=== PATIENT | female | born 1970 | race American Indian/Alaskan Native ===

== ENCOUNTER 2017-09-21 21:00 | Emergency (ER) | payer MEDICAID ==
[2017-09-21 21:24] VITALS: RESP 18; TEMP 98.2; O2SAT 100
[2017-09-21] MEDS ORDERED: TDAP Vaccine 0.5 mL Syr IM ONE (21:34)
[2017-09-21] MEDS ORDERED: Oxycodone/Acetaminophen 5/325 mg Tab PO STA (21:35)
--- NOTE | 2017-09-21 21:41 | ED PDOC ---
Arrival/HPI - General Chief Complaint: Lower Extremity Problem/Injury Time Seen by Provider: 09/21/17 21:22 Historian: Patient, Other (daugther is at bedside) - History of Present Illness Narrative History of Present Illness (Text): 09/21/17 21:37 pt p/w + left leg pain, left face pain, s/p trip and fall after her left leg gave out on her today x 2 episodes; pt states she was able to get up on her own by straddling between 2 cars but she is now limping with left leg pain; pt states as she fall, + struck her left upper face, + mild swelling; pt states her left leg pain is severe at 8/10; pt states no fever/chills/sweats, no byers, no vision changes, no neck pain, no cp/sob/palpitations, no abd pain, no n/v, no numbness/tingling, no urinary/bowel changes, no travel/sick contact. pt states no urinary/bowel incontinence, no rectal/vaginal numbness/tingling pt is here for further eval pt's without other complaints. PCP: TEJA hx of back surgery hx of left drop foot, does not ambulate with a brace/walking device Time/Duration: 24 hours Symptom Onset: Sudden Symptom Course: Unchanged Severity Level: 7 Activities at Onset: Rest Context: Walking, Other (at a parking lot) Past Medical History - Provider Review Nursing Documentation Reviewed: Yes - Travel History Have you recently traveled outside [place] w/in the past 3 mons?: No - Past History Past History: No Previous - Infectious Disease Hx of Infectious Diseases: None - Reproductive Currently : Unknown - Cardiac Hx Cardiac Disorders: No - Pulmonary Hx Respiratory Disorders: No - Neurological Hx Neurological Disorder: No - HEENT Hx HEENT Disorder: No - Renal Hx Renal Disorder: No - Endocrine/Metabolic Hx Endocrine Disorders: Yes Hx Hyperthyroidism: Yes Hx Systemic Lupus Erythematosus: Yes - Hematological/Oncological Hx Blood Disorders: No - Integumentary Hx Dermatological Disorder: No - Musculoskeletal/Rheumatological Hx Musculoskeletal Disorders: Yes Hx Back Pain: Yes Hx Herniated Disk: Yes 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 L4-L5 fusion - Gastrointestinal Hx Gastrointestinal Disorders: No - Genitourinary/Gynecological Hx Genitourinary Disorders: No - Psychiatric Hx Psychophysiologic Disorder: No Hx Substance Use: No - Anesthesia Hx Anesthesia: Yes Hx Anesthesia Reactions: No Family/Social History - Physician Review Nursing Documentation Reviewed: Yes Family/Social History: No Known Family HX Smoking Status: Never Smoked Hx Alcohol Use: No Hx Substance Use: No Hx Substance Use Treatment: No Allergies/Home Meds Allergies/Adverse Reactions: Allergies No Known Allergies Allergy (Unverified 08/15/13 15:27) Home Medications: Home Meds Medication Instructions Recorded Confirmed Hydroxychloroquine Sulfate 200 mg PO DAILY 09/21/17 09/21/17 Ibuprofen [Motrin Tab] 800 mg PO BID 09/21/17 09/21/17 Propylthiouracil 100 mg PO BID 09/21/17 09/21/17 Review of Systems - Review of Systems Constitutional: Normal Eyes: Normal ENT: Normal Respiratory: Normal Cardiovascular: Normal. absent: Chest Pain, Syncope Gastrointestinal: Normal. absent: Abdominal Pain, Nausea, Vomiting Genitourinary Female: Normal Musculoskeletal: Other (left leg pain) Skin: Normal. absent: Rash Neurological: Other (left face pain). absent: Headache, Dizziness, Focal Weakness, Speech Changes Endocrine: Normal Hemo/Lymphatic: Normal Psychiatric: Normal Physical Exam Vital Signs Reviewed: Yes Vital Signs Temp Pulse Resp BP Pulse Ox 09/21/17 21:19 98.2 F 100 H 18 136/74 100 Temperature: Afebrile Blood Pressure: Normal Pulse: Regular Respiratory Rate: Normal Appearance: Positive for: Well-Appearing, Non-Toxic, Uncomfortable, Other ( sitting on exam bed, alert/awake, GCS = 15, oriented x 3, NAD, + uncomfortable, + cooperative) Pain Distress: None Mental Status: Positive for: Alert and Oriented X 3 - Systems Exam Head: Present: Normocephalic, Other (+ left mid facial mild swelling is noted, + mild tenderness noted, NO fluctuance/no induration noted, faint mild skin erythema is noted; NO lacerations/lesions/rashes noted) Pupils: Present: PERRL, Other (no nystagmus, no photophobia, sclera anicteric, visual field intact b/l) Extroacular Muscles: Present: EOMI Conjunctiva: Present: Normal Ears: Present: Normal Mouth: Present: Moist Mucous Membranes, Normal Teeth, Other (uvula/tongue are midline, no exudate/lesions, no drooling/stridor, no dysphonia) Pharnyx: Present: Normal Nose (External): Present: Atraumatic Nose (Internal): Present: Normal Inspection Neck: Present: Normal Range of Motion, Trachea Midline, Other (intact ROM, no step off, no midline tenderness, no nuchal rigidity). No: Meningeal Signs, MIDLINE TENDERNESS, Paraspinal Tenderness Respiratory/Chest: Present: Clear to Auscultation, Good Air Exchange, Other ( CTA b/l, no w/r/r). No: Respiratory Distress, Accessory Muscle Use Cardiovascular: Present: Regular Rate and Rhythm, Normal S1, S2. No: Murmurs Abdomen: Present: Normal Bowel Sounds, Other (well nourished female, no focal tenderness, no fontenot's sign, no mcburney's point tenderness, no masses/rebound/ guarding/rigidity) Back: Present: Normal Inspection. No: CVA Tenderness, Midline Tenderness Upper Extremity: Present: Normal Inspection, Normal ROM, NORMAL PULSES, Neurovascularly Intact, Other (strength 5/5 grossly intact b/l, intact ROM, no gross deformities noted). No: Deformity Lower Extremity: Present: NORMAL PULSES, Neurovascularly Intact, Other (intact ROM, + left anterior knee skin abrasions noted, NO acute bleeding/discharge/ lacerations noted; pt is able to bear weight but limps/favors left leg when she walks; strength 5-/5 left lower ext, neurovasc intact b/l). No: CALF TENDERNESS , Kain's Sign Neurological: Present: GCS=15, CN II-XII Intact, Speech Normal, Other (CNII-XII WNL, no facial asymmetries, no slurr speech, NIH stroke scale ~ 0) Skin: Present: Warm, Normal Color, Other (cap refill < 1sec, no ulcerations, no petechiae, as described above left anterior knee skin abrasion) Psychiatric: Present: Alert, Oriented x 3 Medical Decision Making ED Course and Treatment: 09/21/17 21:35 Impression: left face/left leg pain s/p fall i have consider all the differential diagnosis regarding pt's chief medical complaints/clinical findings, including but are not limited to: unlikely fracture, + contusion/strain A/P: left face/leg pain - xray - RICE txt - supportive care - observe/reevaluation pt is currently awaiting xray 09/21/17 23:25 pt is at bedside pt felt slight improvement pt is made aware of her medical results pt is encouraged RICE txt pt is encouraged cane for ambulation pt will f/u as directed pt will be discharged home Re-evaluation Time: 23:18 Reassessment Condition: Improving,but remains with symptoms - RAD Interpretation Narrative RAD Interpretations (Text): 09/21/17 23:07 PRELIM results: L/S xray - no acute fx/subluxation osteopenia DJD left hip/pelvis - djd/osteopenia no actue fx abnl appearing b/l hip joint Left knee - osteopenia DJD no acute fx/dislocation noted Radiology Orders: 09/21/17 21:34 KNEE LEFT 2 VIEWS (AP & LAT) [RAD] Stat 09/21/17 21:35 HIP MIN 2V W/ PELVIS LT [RAD] Stat 09/21/17 21:36 LS SPINE AP/LAT [RAD] Stat Log Grader: ED Physician - Medication Orders Current Medication Orders: Discontinued Medications Ibuprofen (Motrin Tab) 400 mg PO STAT STA Stop: 09/21/17 21:36 Last Admin: 09/21/17 22:18 Dose: 400 mg MAR Pain/Vitals Document 09/21/17 22:18 OCS (Rec: 09/21/17 22:18 OCS [id number]) Pain Reassessment Is This A Pain ReAssessment? Yes Sleep Is patient sleeping during reassessment? No Presence of Pain Presence of Pain Yes Pain Scale Used Pain Scale Used Numeric Location Left, Right or Bilateral Left Pain Location Body Site Knee Description Constant Intensity 9 Scale Used Numeric Aggravating Factors ADL's Oxycodone/Acetaminophen (Percocet 5/325 Mg Tab) 1 tab PO STAT STA Stop: 09/21/17 21:36 Last Admin: 09/21/17:18 Dose: 1 tab MAR Pain Assessment Document 09/21/17 22:18 OCS (Rec: 09/21/17 22:19 OCS [id number]) Pain Reassessment Is this a pain reassessment? Yes Sleep Is patient sleeping during reassessment? No Presence of Pain Presence of Pain Yes Pain Scale Used Pain Scale Used Numeric Location Left, Right or Bilateral Left Pain Location Body Site Knee Description Description Constant Aggravating Factors ADL's Tetanus/Reduced Diphtheria/Acell Pertussis (Boostrix Vaccine Inj) 0.5 ml IM .ONCE ONE Stop: 09/21/17 21:35 Last Admin: 09/21/17: Dose: 0.5 ml [facility] Immunization Data Document 09/21/17 22:17 OCS (Rec: 09/21/17 22:17 [id number] Immunization Data Vaccine Information Sheet Given Yes Vaccine Information Sheet Given Date 09/21/17 Immunization Registry Document 09/21/17 22:17 [facility] (Rec: 09/21/17 22:17 [id number] Immunization Registry Consent Date 09/21/17 Disposition/Present on Arrival - Present on Arrival Any Indicators Present on Arrival: No History of DVT/PE: No History of Uncontrolled Diabetes: No Urinary Catheter: No History of Decub. Ulcer: No History Surgical Site Infection Following: None - Disposition Have Diagnosis and Disposition been Completed?: Yes Diagnosis: Left knee pain, Contusion of left knee and lower leg, Fall, Facial contusion Disposition: HOME/ ROUTINE Disposition Time: 23:09 Patient Plan: Discharge Condition: STABLE Print Language: JAPANESE Additional Instructions: Make sure to see your doctor in 1-2 days DRINK PLENTY OF FLUIDS take your medications as prescribed keep wound clean and dry ICE your left knee WALK with cane elevate your left leg for comfort RETURN TO ED IF worse pain, cant breath, persistent vomiting, high fever >101- 102 for hours, altered behavior, slurr speech, facial changes, focal weakness ( arm/leg or both), unable to urinate, heavy/persistent bleeding, passing out, chest pain, or other medical emergencies Prescriptions: Ibuprofen [Motrin] 400 mg PO QID PRN #20 tab PRN Reason: Pain, Mild (1-3) oxyCODONE/Acetaminophen [Percocet 5/325 mg Tab] 1 tab PO TID PRN #10 tab PRN Reason: Pain, Moderate (4-7) Referrals: Samir Barrera DO [Primary Care Provider] - Follow up with primary Reese Vega III, MD [Medical Doctor] - Follow up with primary Forms: [employer] ([place])
[2017-09-22 02:09] VITALS: BP 140/63; PULSE 90
== END 2017-09-21 23:44 | disposition home or self-care (01) ==
LOC: ED 21:00
DX: S80.02XA Contusion of left knee, initial encounter (principal); S80.12XA Contusion of left lower leg, initial encounter; S00.83XA Contusion of other part of head, initial encounter; W01.0XXA Fall on same level from slipping, tripping and stumbling without subsequent striking against object, initial encounter; Y92.481 Parking lot as the place of occurrence of the external cause; M32.9 Systemic lupus erythematosus, unspecified; M25.562 Pain in left knee; Z23 Encounter for immunization